=== PATIENT | male | born 1960 | race American Indian/Alaskan Native ===

== ENCOUNTER 2018-02-04 07:03 | Day surgery (SDC) | payer BC ==
[2018-02-03 10:33] VITALS: BMI 50.2
[2018-02-04] MEDS ORDERED: Propofol 10 mg/ml Inj (20 ML) ONE (09:50)
[2018-02-04 10:34] VITALS: TEMP 97.8; O2SAT 100
[2018-02-04 11:30] VITALS: BP 142/87; PULSE 59; RESP 14
== END 2018-02-04 11:19 | disposition home or self-care (01) ==
LOC: C.ENDO 07:03
PROVIDERS: ATTEND Internal Medicine Gastroenterology
DX: Z12.11 Encounter for screening for malignant neoplasm of colon (principal); K64.1 Second degree hemorrhoids
CPT/HCPCS: 45378; 82948; J2001; J2704